=== PATIENT | female | born 1995 | race Caucasian/White ===

== ENCOUNTER 2020-12-14 18:30 | Emergency (ER) | payer MEDICAID ==
[~2020-12-14] VITALS: Ht 162.6 cm; Wt 92.1 kg
[2020-12-14 18:43] VITALS: BP 136/76
--- NOTE | 2020-12-14 18:47 | NUR ---
PT AMB TO BED 9.
--- NOTE | 2020-12-14 18:49 | NUR ---
BIBS WITH LACERATION TO RIGHT HAND 1ST DIGIT S/P CUTTING FINGER ON CAN. PATIENT CUT HER FINGER EARLIER THIS MORNING. MINIMALLY BLEEDING NOTED TO LACERATION. NO PMH
[2020-12-14] MEDS: LIDOCAINE 2% 1000 MG/50 ML VIAL INJ ONE (19:02)
[2020-12-14] MEDS ORDERED: IBUP-1842 PO (19:19)
[2020-12-14] MEDS ORDERED: BACI1PAC6 TP (19:19)
--- NOTE | 2020-12-14 19:19 | NUR ---
HANDOFF REPORT GIVEN TO FANTA RN
[2020-12-14 19:46] VITALS: BP 136/76
--- NOTE | 2020-12-14 19:46 | NUR ---
Patient discharged with v/s stable. Written and verbal after care instructions given and explained. Patient alert, oriented and verbalized understanding of instructions. Ambulatory with steady gait. All questions addressed prior to discharge. ID band removed. Patient advised to follow up with PMD. Rx of Bacitracin OINT and Motrin given. Patient educated on indication of medication including possible reaction and side effects. Opportunity to ask questions provided and answered.
== END 2020-12-14 19:46 | disposition home or self-care (01) ==
LOC: MED 18:30
DX: S61.210A Laceration without foreign body of right index finger without damage to nail, initial encounter (principal); W26.8XXA Contact with other sharp object(s), not elsewhere classified, initial encounter; Y93.89 Activity, other specified; Y92.89 Other specified places as the place of occurrence of the external cause; Y99.8 Other external cause status
CPT/HCPCS: 12001; 90471; 90715; 99283; J2001

== ENCOUNTER 2020-12-22 18:26 | Emergency (ER) | payer MEDICAID ==
[~2020-12-22] VITALS: Ht 162.6 cm; Wt 92.1 kg
[~2020-12-22 18:26] MED LIST: BACI1PAC6 TP; IBUP-1842 PO
[2020-12-22 18:53] VITALS: BP 125/67
--- NOTE | 2020-12-22 18:58 | NUR ---
PT TO AWAIT IN LOBBY
[2020-12-22] MEDS ORDERED: BACI1PAC6 TP (19:28)
--- NOTE | 2020-12-22 19:39 | NUR ---
d/c with VSS. d/c education given .opportunity to ask questions given and answered. rx of bacitracin given.
== END 2020-12-22 19:39 | disposition home or self-care (01) ==
LOC: MED 18:26
DX: S61.220D Laceration with foreign body of right index finger without damage to nail, subsequent encounter (principal); Z48.00 Encounter for change or removal of nonsurgical wound dressing; X58.XXXD Exposure to other specified factors, subsequent encounter
CPT/HCPCS: 99282